=== PATIENT | male | born 1975 | race Caucasian/White ===

== ENCOUNTER 2018-10-17 19:03 | Emergency (ER) | payer OTHER ==
[~2018-10-17] VITALS: Ht 165.1 cm; Wt 83.9 kg
== END 2018-10-17 20:18 | disposition home or self-care (01) ==
LOC: ER 19:03
DX: R60.0 Localized edema (principal); R13.19 Other dysphagia; T78.1XXA Other adverse food reactions, not elsewhere classified, initial encounter; X58.XXXA Exposure to other specified factors, initial encounter

== ENCOUNTER 2018-11-06 19:30 | Emergency (ER) | payer OTHER ==
[~2018-11-06] VITALS: Ht 172.7 cm; Wt 83.0 kg
[2018-11-07] MEDS ORDERED: EPIPEN 2-P0.3 MG/0.3 IM ×2 (00:39→00:41)
== END 2018-11-07 01:09 | disposition home or self-care (01) ==
LOC: ER 19:30
DX: T78.3XXA Angioneurotic edema, initial encounter (principal)

== ENCOUNTER 2018-12-10 19:12 | Emergency (ER) | payer OTHER ==
[~2018-12-10] VITALS: Ht 172.7 cm; Wt 83.9 kg
[~2018-12-10 19:12] MED LIST: EPIPEN 2-P0.3 MG/0.3 IM
[2018-12-10] MEDS ORDERED: DAYTIME COLD-F1 EACH (19:35)
== END 2018-12-10 21:15 | disposition home or self-care (01) ==
LOC: ER 19:12
DX: H66.93 Otitis media, unspecified, bilateral (principal)

== ENCOUNTER 2019-04-10 08:14 | Emergency (ER) | payer OTHER ==
[~2019-04-10] VITALS: Ht 152.4 cm; Wt 81.6 kg
[~2019-04-10 08:14] MED LIST changes: +DAYTIME COLD-F1 EACH
[2019-04-10] MEDS ORDERED: AMOXICILLIN-CL1 EACH (08:25)
[2019-04-10] MEDS ORDERED: TESSALON PERLE100 M1 PO (11:35)
== END 2019-04-10 12:21 | disposition home or self-care (01) ==
LOC: ER 08:14
DX: B34.9 Viral infection, unspecified (principal)